=== PATIENT | male | born 1990 | race African-American/Black ===

== ENCOUNTER 2017-06-18 10:53 | Emergency (ER) | payer OTHER ==
[2017-06-18 10:58] VITALS: TEMP 98.2
[2017-06-18] MEDS ORDERED: KETOROLAC 30 MG/ML 1 ML VIAL IVP STA (11:12)
[2017-06-18 11:39] LABS: Basophils % (A) 1 %; Eosinophils # (A) 0.2 k/uL (0-0.7); Eosinophils % (A) 3 %; HCT 52.4 % (39.0-53.0); HGB 16.5 gm/dL (13.0-17.5); Lymphocytes # (A) 2.5 k/uL (1.0-4.8); Lymphocytes % (A) 43 %; MCH 27.1 pg (25.0-35.0); MCHC 31.5 g/dL (31.0-37.0); MCV 86.1 fL (80.0-100.0); Mean Platelet Volume 6.4; Monocytes # (A) 0.4 k/uL (0-1.0); Monocytes % (A) 7 %; Neutrophils # (A) 2.6 k/uL (1.3-7.7); Neutrophils % (A) 43 %; Platelet Count 304 k/uL (150-450); RBC 6.09 m/uL (4.30-5.90); RDW 13.4 % (11.5-15.5); WBC 5.9 k/uL (3.8-10.6)
--- NOTE | 2017-06-18 11:47 | XR ---
EXAMINATION TYPE: XR chest 2V DATE OF EXAM: 06/18/2017 COMPARISON: NONE HISTORY: chest pain TECHNIQUE: Frontal and lateral views of the chest are obtained. FINDINGS: There is no focal air space opacity, pleural effusion, or pneumothorax seen. The cardiac silhouette size is within normal limits. The osseous structures are intact. IMPRESSION: No acute cardiopulmonary process.
[2017-06-18 11:49] LABS: Appearance,Urine Clear (Clear); Bilirubin,Urine Negative (Negative); Blood,Urine Negative (Negative); Color,Urine Light Yellow; Glucose,Urine (UA) Negative (Negative); Ketones,Urine Negative (Negative); Leukocyte Esterase,Urine Negative (Negative); Nitrite,Urine Negative (Negative); Protein,Urine Negative (Negative); Specific Gravity,Urine 1.005 (1.001-1.035); Urobilinogen,Urine <2.0 mg/dL (<2.0)
[2017-06-18 11:49] LABS: INR 1.2 (<1.2); Partial Thromboplastin Time 27.3 sec (22.0-30.0); Prothrombin Time 11.4 sec (9.0-12.0)
[2017-06-18 11:55] LABS: Creatine Kinase 395 U/L (55-170)
[2017-06-18 12:08] LABS: Creatine Kinase MB 1.8 ng/mL (0.0-2.4); Troponin I <0.012 ng/mL (0.000-0.034)
--- NOTE | 2017-06-18 13:07 | ED ---
General Adult HPI - General Chief complaint: Urogenital Stated complaint: STD Screening, Chest Pain Time Seen by Provider: 06/18/17 10:59 Source: patient Mode of arrival: ambulatory Limitations: no limitations - History of Present Illness Initial comments: This 27-year-old male presents complaining of some pain in his chest as well as some shortness of breath. This is diffuse throughout his chest and is reproducible. This is been present for the past 3 days. He also states that he is worried about the possibility of having syphilis. He states that one of his previous partners apparently had syphilis. He has a hard time telling me when this occurred as he states that he cannot remember. It may have occurred approximately 6 months ago. He states that he did have unprotected sex with his partner. He was checked for syphilis afterwards and his test was negative although he states that he thinks that the test was done wrong. He also states that he had some penile discharge and a sore on his scrotum but he is having a hard time telling me the exact timeframe of this as well. He is unable to tell me the last time he had unprotected intercourse but it sounds as though it may have been more than 3 months ago. He, overall, is a very poor historian. He is currently asymptomatic in regards to genitourinary symptoms. He thinks that his syphilis is affecting his heart as he did read up on this. - Related Data Previous Rx's Medication Instructions Recorded Albuterol Sulfate [Proair Hfa] 1 - 2 puff INHALATION Q6HR PRN #1 06/18/17 inhaler Naproxen [Naprosyn] 500 mg PO Q12HR PRN #20 tab 06/18/17 diphenhydrAMINE [Benadryl] 50 mg PO HS PRN #15 capsule 06/18/17 Allergies Allergy/AdvReac Type Severity Reaction Status Date / Time No Known Allergies Allergy Verified 06/18/17 10:57 Review of Systems ROS Statement: Those systems with pertinent positive or pertinent negative responses have been documented in the HPI. ROS Other: All systems not noted in ROS Statement are negative. Past Medical History Past Medical History: No Reported History History of Any Multi-Drug Resistant Organisms: None Reported Past Surgical History: No Surgical Hx Reported Past Psychological History: No Psychological Hx Reported Smoking Status: Current every day smoker Past Alcohol Use History: None Reported Past Drug Use History: Marijuana General Exam - General Exam Comments Initial Comments: GENERAL: The patient is well nourished and well hydrated. VITAL SIGNS: Heart rate, blood pressure, respiratory rate reviewed as recorded in nurse's notes. EYES: Pupils are round and reactive. Extraocular movements are intact. No conjunctival / lid redness or swelling. ENT: No external evidence of injury, swelling, or ecchymosis. Airway is patent. Throat is clear. NECK: Nontender. No swelling or evidence of injury. No subcutaneous emphysema. Trachea is midline. No thyroid mass. HEART: Regular rate and rhythm. Good peripheral pulses. LUNGS/CHEST: Breath sounds clear and equal bilaterally. No rales, rhonchi, or wheezes. There is some mild tenderness upon palpation of the anterior chest wall. ABDOMEN: Abdomen soft without tenderness. No palpable masses or organomegaly. No peritoneal signs. No abdominal wall swelling or ecchymosis. EXTREMITIES: No extremity tenderness. Normal muscle tone and function. No thoracolumbar tenderness. NEUROLOGIC: Sensation is grossly intact. Cranial nerve exam reveals face is symmetrical, tongue is midline, speech is clear. SKIN: No abrasions or ecchymosis is noted. No induration or masses noted. PSYCHIATRIC: Alert and oriented. Appears anxious at times. Limitations: no limitations Course Vital Signs 06/18/17 10:54 Temperature 98.2 F Pulse Rate 103 H Respiratory 20 Rate Blood Pressure 140/89 O2 Sat by Pulse 98 Oximetry Medical Decision Making - Medical Decision Making The patient was seen and examined. All diagnostics were reviewed. Is fairly insistent on having a repeat syphilis test. He understands that this will not come back during his ER course but is willing to follow up with the results. The EKG shows a normal sinus rhythm at a rate of [address]-T wave changes noted. The TN intervals 154, QRS duration is 84, and the QTc interval is 414. The chest x-ray does not show any acute processes. The laboratories all essentially within normal limits. Overall, his chest pain is reproducible and does have a pleuritic component. Is felt that he likely does have a degree of pleuritis. It is felt as though he stable for discharge. He further relates that he has some insomnia and would like some medication for this as well. He is instructed to follow-up with his syphilis, gonorrhea, and chlamydia testing with his primary care physician in 2 days. He is still very insistent that he thinks that his heart is affected by syphilis. A long discussion was held that this is felt to be very uncommon is and is quite a rare condition and he already has had one negative test. It is felt as though he would need to wait for the results to come back before further recommendations come forth and regard to syphilis. Overall, it is felt unlikely that he does have syphilis. He is informed that he should follow-up with his primary care physician for comprehensive STD testing. Overall, it is also felt as though he has underlying degree of anxiety. It is somewhat difficult to get him to understand reasonable medical thought process as he seems quite infatuated in regard to having syphilis. - Lab Data Result diagrams: 06/18/17 11:25 Lab Results 06/18/17 06/18/17 06/18/17 Range/Units 11:25 11:25 11:25 WBC 5.9 (3.8-10.6) k/uL RBC 6.09 H (4.30-5.90) m/uL Hgb 16.5 (13.0-17.5) gm/dL Hct 52.4 (39.0-53.0) % MCV 86.1 (80.0-100.0) fL MCH 27.1 (25.0-35.0) pg MCHC 31.5 (31.0-37.0) g/dL RDW 13.4 (11.5-15.5) % Plt Count 304 (150-450) k/uL Neutrophils % 43 % Lymphocytes % 43 % Monocytes % 7 % Eosinophils % 3 % Basophils % 1 % Neutrophils # 2.6 (1.3-7.7) k/uL Lymphocytes # 2.5 (1.0-4.8) k/uL Monocytes # 0.4 (0-1.0) k/uL Eosinophils # 0.2 (0-0.7) k/uL Basophils # 0.0 (0-0.2) k/uL PT 11.4 (9.0-12.0) sec INR 1.2 H (<1.2) APTT 27.3 (22.0-30.0) sec Total Creatine Kinase 395 H (55-170) U/L CK-MB (CK-2) 1.8 (0.0-2.4) ng/mL CK-MB (CK-2) Rel Index 0.5 Troponin I <0.012 (0.000-0.034) ng/mL Urine Color Urine Appearance (Clear) Urine pH (5.0-8.0) Ur Specific [place] (1.001-1.035) Urine Protein (Negative) Urine Glucose (UA) (Negative) Urine Ketones (Negative) Urine Blood (Negative) Urine Nitrite (Negative) Urine Bilirubin (Negative) Urine Urobilinogen (<2.0) mg/dL Ur Leukocyte Esterase (Negative) 06/18/17 Range/Units 11:26 WBC (3.8-10.6) k/uL RBC (4.30-5.90) m/uL Hgb (13.0-17.5) gm/dL Hct (39.0-53.0) % MCV (80.0-100.0) fL MCH (25.0-35.0) pg MCHC (31.0-37.0) g/dL RDW (11.5-15.5) % Plt Count (150-450) k/uL Neutrophils % % Lymphocytes % % Monocytes % % Eosinophils % % Basophils % % Neutrophils # (1.3-7.7) k/uL Lymphocytes # (1.0-4.8) k/uL Monocytes # (0-1.0) k/uL Eosinophils # (0-0.7) k/uL Basophils # (0-0.2) k/uL PT (9.0-12.0) sec INR (<1.2) APTT (22.0-30.0) sec Total Creatine Kinase (55-170) U/L CK-MB (CK-2) (0.0-2.4) ng/mL CK-MB (CK-2) Rel Index Troponin I (0.000-0.034) ng/mL Urine Color Light Yellow Urine Appearance Clear (Clear) Urine pH 7.0 (5.0-8.0) Ur Specific [place] 1.005 (1.001-1.035) Urine Protein Negative (Negative) Urine Glucose (UA) Negative (Negative) Urine Ketones Negative (Negative) Urine Blood Negative (Negative) Urine Nitrite Negative (Negative) Urine Bilirubin Negative (Negative) Urine Urobilinogen <2.0 (<2.0) mg/dL Ur Leukocyte Esterase Negative (Negative) Disposition Clinical Impression: Chest pain, Dyspnea, Pleuritis, Insomnia Disposition: HOME SELF-CARE Condition: Good Instructions: Chest Pain (ED), Pleurisy (ED) Additional Instructions: Please follow-up with your cultures on Friday with your primary care physician. Prescriptions: Albuterol Sulfate [Proair Hfa] 1 - 2 puff INHALATION Q6HR PRN #1 inhaler PRN Reason: Shortness Of Breath Or Wheezing diphenhydrAMINE [Benadryl] 50 mg PO HS PRN #15 capsule PRN Reason: Insomnia Naproxen [Naprosyn] 500 mg PO Q12HR PRN #20 tab PRN Reason: Pain Referrals: None,Stated [Primary Care Provider] - 06/20/17 Time of Disposition: 13:26
[2017-06-18 13:36] VITALS: BP 134/75; PULSE 82; RESP 16
[2017-06-19 15:37] LABS: C. trachomatis,PCR Negative (Neg,Equiv); Chlamydia trachomatis Source Urine; N. gonorrhoeae,PCR Negative (Neg,Equiv); Neisseria Source Urine
== END 2017-06-18 13:36 | disposition home or self-care (01) ==
LOC: EC 10:53
DX: R09.1 Pleurisy (principal); G47.00 Insomnia, unspecified; Z11.3 Encounter for screening for infections with a predominantly sexual mode of transmission; F17.200 Nicotine dependence, unspecified, uncomplicated
CPT/HCPCS: 36415; 93005; 82550; 82553; 84484; 85025; 85610; 85730; 81003; 87491; 87591; 86780; 71046; 99284; 96374; J1885

== ENCOUNTER 2017-06-23 09:15 | Emergency (ER) | payer OTHER ==
[2017-06-23 09:20] VITALS: RESP 18
[2017-06-23] MEDS ORDERED: KETOROLAC 30 MG/ML 1 ML VIAL IVP STA (09:38)
--- NOTE | 2017-06-23 09:48 | ED ---
Chest Pain HPI - General Chief Complaint: Chest Pain Stated Complaint: CHEST PAIN X 2 WEEKS Time Seen by Provider: 06/23/17 09:27 Source: patient, RN notes reviewed Mode of arrival: wheelchair Limitations: no limitations - History of Present Illness Initial Comments: This is a 26-year-old male who states she's had anterior sharp chest pain last couple weeks. He states his been on-and-off for this. Time he states that last night and this morning is had increased pain 10/10 severity increases with movements and deep breathing he denies any fevers chills nausea vomiting sweats he does state he has some palpitations last night. He currently has pain no palpitations. He has no other complaints at this time he reports no trauma. No personal history of heart or lung disease. He does state her the family history of early heart disease but he is not sure exactly what age. MD Complaint: chest pain - Related Data Previous Rx's Medication Instructions Recorded Ibuprofen 800 mg PO Q6HR PRN #20 tablet 06/23/17 Zolpidem Tartrate [Ambien] 5 mg PO HS PRN #7 tablet 06/23/17 predniSONE 20 mg PO BID #10 tab 06/23/17 Allergies Allergy/AdvReac Type Severity Reaction Status Date / Time No Known Allergies Allergy Verified 06/23/17 09:35 Review of Systems ROS Statement: Those systems with pertinent positive or pertinent negative responses have been documented in the HPI. ROS Other: All systems not noted in ROS Statement are negative. EKG Findings - EKG Results: EKG: interpreted by [facility], sinus rhythm, normal axis, normal QRS, normal ST/ T, no acute changes (Normal sinus rhythm rate of 77 appear of 01 58 QRS duration 82 QT since QTC of 372/420 this is normal. EKG.) Past Medical History Past Medical History: No Reported History History of Any Multi-Drug Resistant Organisms: None Reported Past Surgical History: No Surgical Hx Reported Past Psychological History: No Psychological Hx Reported Smoking Status: Current every day smoker Past Alcohol Use History: None Reported Past Drug Use History: Marijuana General Exam - General Exam Comments Initial Comments: This is a well-developed well-nourished awake alert oriented 3 male Limitations: no limitations General appearance: alert, in no apparent distress Head exam: Present: atraumatic, normocephalic, normal inspection Eye exam: Present: normal appearance, PERRL, EOMI. Absent: scleral icterus, conjunctival injection, periorbital swelling ENT exam: Present: normal exam, mucous membranes moist Neck exam: Present: normal inspection. Absent: tenderness, meningismus, lymphadenopathy Respiratory exam: Present: normal lung sounds bilaterally, chest wall tenderness (Tennis palpation over the right and left costochondral margins. No step-off no crepitation). Absent: respiratory distress, wheezes, rales, rhonchi , stridor Cardiovascular Exam: Present: regular rate, normal rhythm, normal heart sounds. Absent: systolic murmur, diastolic murmur, rubs, gallop, clicks GI/Abdominal exam: Present: soft, normal bowel sounds. Absent: distended, tenderness, guarding, rebound, rigid Extremities exam: Present: normal inspection, full ROM, normal capillary refill. Absent: tenderness, pedal edema, joint swelling, calf tenderness Back exam: Present: normal inspection Neurological exam: Present: alert, oriented X3, CN II-XII intact Psychiatric exam: Present: normal affect, normal mood Skin exam: Present: warm, dry, intact, normal color. Absent: rash Course Vital Signs 06/23/17 09:18 Temperature 97.5 F L Pulse Rate 91 Respiratory 18 Rate Blood Pressure 132/61 O2 Sat by Pulse 100 Oximetry - Reevaluation(s) Reevaluation #1: 06/23/17 11:57 Evaluation patient reveals some improvement Chest Pain MDM - MDM I did review the imaging and reports no acute findings. The patient presentation is consistent with costochondritis/chest wall pain. I did discuss the findings with the patient he will be discharged on appropriate anti- inflammatories. He states he's been having difficulties sleeping he'll get a small prescription for Ambien. Disposition Clinical Impression: Costalchondritis, Chest wall syndrome, Insomnia Disposition: HOME SELF-CARE Condition: Good Instructions: Costochondritis (ED), Insomnia (ED) Prescriptions: Ibuprofen 800 mg PO Q6HR PRN #20 tablet PRN Reason: Pain predniSONE 20 mg PO BID #10 tab Zolpidem Tartrate [Ambien] 5 mg PO HS PRN #7 tablet PRN Reason: Insomnia Referrals: None,Stated [Primary Care Provider] - 1-2 days
--- NOTE | 2017-06-23 10:27 | XR ---
EXAMINATION TYPE: XR chest 2V DATE OF EXAM: 06/23/2017 COMPARISON: 06/18/2017 HISTORY: 27-year-old male with chest pain TECHNIQUE: PA and lateral views FINDINGS: The cardiomediastinal silhouette, aorta, and pulmonary vasculature are within normal limits. Lungs an d pleural spaces are clear. IMPRESSION: No acute cardiopulmonary process.
[2017-06-23 10:31] LABS: ALT 21 U/L (21-72); AST 21 U/L (17-59); Albumin 3.4 g/dL (3.5-5.0); Alkaline Phosphatase 53 U/L (38-126); Anion Gap 6 mmol/L; Blood Urea Nitrogen 10 mg/dL (9-20); Carbon Dioxide 28 mmol/L (22-30); Chloride 107 mmol/L (98-107); Glucose 93 mg/dL (74-99); Magnesium 2.1 mg/dL (1.6-2.3); Potassium 4.6 mmol/L (3.5-5.1); Sodium 141 mmol/L (137-145); Total Bilirubin 0.2 mg/dL (0.2-1.3); Total Protein 5.8 g/dL (6.3-8.2)
[2017-06-23 10:32] LABS: D-Dimer <0.17 mg/L FEU (<0.60); INR 1.2 (<1.2); Partial Thromboplastin Time 25.9 sec (22.0-30.0); Prothrombin Time 11.2 sec (9.0-12.0)
[2017-06-23 10:43] LABS: Creatine Kinase 175 U/L (55-170)
[2017-06-23 10:51] LABS: Creatine Kinase MB 0.8 ng/mL (0.0-2.4); Troponin I <0.012 ng/mL (0.000-0.034)
[2017-06-23 10:56] LABS: Basophils % (A) 1 %; Eosinophils # (A) 0.2 k/uL (0-0.7); Eosinophils % (A) 3 %; HCT 41.6 % (39.0-53.0); Lymphocytes % (A) 39 %; MCH 27.4 pg (25.0-35.0); MCHC 32.3 g/dL (31.0-37.0); MCV 84.8 fL (80.0-100.0); Mean Platelet Volume 6.6; Monocytes # (A) 0.5 k/uL (0-1.0); Monocytes % (A) 9 %; Neutrophils # (A) 2.4 k/uL (1.3-7.7); Neutrophils % (A) 46 %; Platelet Count 207 k/uL (150-450); RDW 13.2 % (11.5-15.5); WBC 5.2 k/uL (3.8-10.6)
[2017-06-23 11:04] LABS: HGB 13.4 gm/dL (13.0-17.5)
[2017-06-23] MEDS ORDERED: methylPREDNISolone SOD SUCCI 125 MG/2 ML VIAL IV STA (11:56)
[2017-06-23 12:23] VITALS: BP 103/55; PULSE 66; TEMP 98.4
== END 2017-06-23 12:39 | disposition home or self-care (01) ==
LOC: EC 09:15
DX: M94.0 Chondrocostal junction syndrome [Tietze] (principal); G47.00 Insomnia, unspecified; F17.200 Nicotine dependence, unspecified, uncomplicated
CPT/HCPCS: 36415; 93005; 85379; 80053; 82550; 82553; 83735; 84484; 85025; 85610; 85730; 71046; 99285; 96374; 96375; J2930; J1885

== ENCOUNTER 2017-07-12 21:58 | Emergency (ER) | payer OTHER ==
[2017-07-12 22:06] VITALS: PULSE 77
--- NOTE | 2017-07-12 22:36 | ED ---
General Adult HPI - General Chief complaint: Psychiatric Symptoms Stated complaint: Mental Health Eval Time Seen by Provider: 07/12/17 22:00 Source: patient, family, RN notes reviewed Mode of arrival: ambulatory Limitations: no limitations - History of Present Illness Initial comments: This is a 27-year-old male who comes in today with his mother and he states like to go to rehab center and he was told we do rehabilitation here. I told him we didn't and his mother then stated she would like him to have a psychiatric evaluation because he occasionally talks to himself. Patient states he talks himself just to settle his nerves. Patient states he does not hear voices does not see anything abnormal. Patient states he is not suicidal is not homicidal. Patient missed a known cocaine 2 days ago and [address] opiates not heroin though. Patient states he also does marijuana chronically. Patient denies any physical complaints - Related Data Home Medications Medication Instructions Recorded Confirmed No Known Home Medications [No 07/12/17 07/12/17 Known Home Medications] Allergies Allergy/AdvReac Type Severity Reaction Status Date / Time No Known Allergies Allergy Verified 07/12/17 22:05 Review of Systems ROS Statement: Those systems with pertinent positive or pertinent negative responses have been documented in the HPI. ROS Other: All systems not noted in ROS Statement are negative. Past Medical History Past Medical History: No Reported History History of Any Multi-Drug Resistant Organisms: None Reported Past Surgical History: No Surgical Hx Reported Past Psychological History: No Psychological Hx Reported Smoking Status: Current every day smoker Past Alcohol Use History: None Reported Past Drug Use History: Marijuana General Exam - General Exam Comments Initial Comments: GENERAL: Patient is well-developed and well-nourished. Patient is nontoxic and well- hydrated and is in no acute distress. ENT: Neck is soft and supple. No significant lymphadenopathy is noted. Oropharynx is clear. Moist mucous membranes. Neck has full range of motion without eliciting any pain. EYES: The sclera were anicteric and conjunctiva were pink and moist. Extraocular movements were intact and pupils were equal round and reactive to light. Eyelids were unremarkable. PULMONARY: Unlabored respirations. Good breath sounds bilaterally. CARDIOVASCULAR: There is a regular rate and rhythm without any murmurs gallops or rubs. ABDOMEN: Soft and nontender with normal bowel sounds. SKIN: Skin is clear with no lesions or rashes and otherwise unremarkable. NEUROLOGIC: Patient is alert and oriented x3. Cranial nerves II through XII are grossly intact. Motor and sensory are also intact. Normal speech, volume and content. Symmetrical smile. MUSCULOSKELETAL: Normal extremities with adequate strength and full range of motion. LYMPHATICS: No significant lymphadenopathy is noted PSYCHIATRIC: Normal psychiatric evaluation. Limitations: no limitations Course Vital Signs 07/12/17 07/13/17 22:00 00:20 Temperature 97.6 F 97.4 F L Pulse Rate 77 77 Respiratory 20 18 Rate Blood Pressure 118/69 113/62 O2 Sat by Pulse 99 100 Oximetry Medical Decision Making - Medical Decision Making EPS evaluated the patient. The patient continues to deny any suicidal or homicidal ideations. Patient denies any voices patient denies seeing anything abnormal. Patient does admit to being a use of illicit drugs. EKG shows normal sinus rhythm at 60 bpm IA interval is on a 50 QRS is 90 QT intervals 408 QTC is 408. Patient's EKG shows no ST segment elevation or depression or T wave abnormalities are noted. Patient stated that he was having intermittent chest pain for several years so we did the EKG. Patient states it's no different than it has been over the last several years. - Lab Data Lab Results 07/12/17 Range/Units 23:11 Urine Opiates Screen Not Detected (NotDetected) Ur Oxycodone Screen Not Detected (NotDetected) Urine Methadone Screen Not Detected (NotDetected) Ur Propoxyphene Screen Not Detected (NotDetected) Ur Barbiturates Screen Not Detected (NotDetected) U Tricyclic Antidepress Not Detected (NotDetected) Ur Phencyclidine Scrn Not Detected (NotDetected) Ur Amphetamines Screen Not Detected (NotDetected) U Methamphetamines Scrn Not Detected (NotDetected) U Benzodiazepines Scrn Detected H (NotDetected) Urine Cocaine Screen Detected H (NotDetected) U Marijuana (THC) Screen Detected H (NotDetected) Disposition Clinical Impression: Cocaine abuse, Marijuana abuse Disposition: HOME SELF-CARE Condition: Good Instructions: Polysubstance Abuse (ED) Additional Instructions: Patient is to follow-up with the rehabilitation Center. Referrals: None,Stated [Primary Care Provider] - 1-2 days Time of Disposition: 00:05
[2017-07-12 23:29] LABS: Amphetamine Screen,Urine Not Detected (NotDetected); Barbiturate Screen,Urine Not Detected (NotDetected); Benzodiazepines Screen,Urine Detected (NotDetected); Cocaine Screen,Urine Detected (NotDetected); Methadone Screen, Urine Not Detected (NotDetected); Opiate Screen,Urine Not Detected (NotDetected); Oxycodone Screen, Urine Not Detected (NotDetected); Phencyclidine Screen,Urine Not Detected (NotDetected); Tricyclic Antidepressant,Urine Not Detected (NotDetected); Urn Cannabinoid Scrn Detected (NotDetected)
[2017-07-13 00:20] VITALS: BP 113/62; RESP 18; TEMP 97.4
== END 2017-07-13 00:37 | disposition home or self-care (01) ==
LOC: EC 21:58
DX: F14.10 Cocaine abuse, uncomplicated (principal); F12.10 Cannabis abuse, uncomplicated; R07.9 Chest pain, unspecified; F17.200 Nicotine dependence, unspecified, uncomplicated
CPT/HCPCS: 80306; 82075; 93005; 99284